=== PATIENT | female | born 1975 | race Caucasian/White ===

== ENCOUNTER 2021-02-03 12:22 | Emergency (ER) | payer OTHER ==
[~2021-02-03 12:22] MED LIST: FERROUS SULFAT325 MG PO; LEVOTHROID 0.0.15 MG PO; LISINOPRIL 20MG20 MG PO; NORCO 5-325 TA1 EACH PO; VITAMIN B-121000 MC3 PO
[2021-02-03 12:58] LABS: BASOPHIL 0.4 % (0-2); EOSINOPHIL 2.1 % (0-5); HCT 41.6 % (37.0-47.0); HGB 13.6 g/dl (12.5-16.0); LYMPHOCYTE 13.9 % (15-48); MCH 28.7 pg (25.0-31.0); MCHC 32.7 g/dL (32.0-36.0); MCV 87.8 fL (78.0-100.0); MONOCYTE 8.1 % (0-12); MPV 8.9 fL (6.0-9.5); NEUTROPHIL 75.1 % (41-80); NRBC 0; PLT 371 K/uL (150-400); RBC 4.74 M/uL (4.20-5.40); RDW 13.3 % (11.5-14.0); WBC 13.8 K/uL (4.0-10.5)
[2021-02-03 13:14] LABS: ALBUMIN 3.6 g/dL (3.4-5.0); BILIRUBIN - TOTAL 0.4 mg/dL (0.2-1.0); BUN/CREAT RATIO (CALC) 13.6 RATIO; CREATININE 0.66 mg/dL (0.51-0.95); GLOBULIN (CALCULATION) 4.7 g/dL; POTASSIUM 3.8 mmol/L (3.5-5.1); TOTAL PROTEIN 8.3 g/dL (6.4-8.2)
[2021-02-03 13:23] LABS: BILIRUBIN NEGATIVE (NEGATIVE); BLOOD TRACE-INTACT Ery/uL (NEGATIVE); CLARITY CLEAR (CLEAR); COLOR YELLOW (YELLOW); GLUCOSE (U) NORMAL (NORMAL); LEUKOCYTES NEGATIVE Leu/uL (NEGATIVE); NITRITE NEGATIVE (NEGATIVE); PROTEIN 1+ mg/dL (NEGATIVE); UROBILINOGEN 0.2 mg/dL (0.2-1.0)
[2021-02-03 13:29] LABS: URINARY RBC RARE
[2021-02-03] MEDS ORDERED: BENTYL10 MG PO (16:56)
[2021-02-03] MEDS ORDERED: ZOFRAN4 M1 PO (16:56)
[2021-02-03] MEDS ORDERED: AUGMENTIN 875-1 EACH PO (16:56)
== END 2021-02-03 17:25 | disposition home or self-care (01) ==
LOC: FER 12:22
PROVIDERS: Emergency Medicine
DX: K57.32 Diverticulitis of large intestine without perforation or abscess without bleeding (principal)
CPT/HCPCS: 36415; 80053; 81001; 82150; 83690; 85025; J2543; Q9967